=== PATIENT | female | born 1985 | race Two or more races ===

== ENCOUNTER → 2017-09-21 | Outpatient (CLI) | payer MEDICAID | LOC: FIMAGING 08:01 | PROVIDERS: ATTEND Family Medicine | DX: M51.36 Other intervertebral disc degeneration, lumbar region (principal); M54.41 Lumbago with sciatica, right side; G89.29 Other chronic pain ==

== ENCOUNTER 2017-12-01 13:50 | Emergency (ER) | payer MEDICAID ==
--- NOTE | 2017-12-01 14:16 | CPEKG ---
Heart Rate: 72 RR Interval: 833 P-R Interval: 128 QRSD Interval: 94 QT Interval: 392 QTC Interval: 430 P [place]: 25 QRS [place]: 69 T Wave [place]: 68 EKG Severity - NORMAL ECG - EKG Impression: SINUS RHYTHM Electronically Signed By: Griffin Oneill 01-Dec-2017 16:18:44
--- NOTE | 2017-12-01 14:19 | EDPHY ---
HPI/HX/ROS/PE/MDM - Data Points Imaging: Discussed imaging studies w/ supervisor of operations Radiologist Narrative: CHIEF COMPLAINT: Epigastric pain HPI: The patient is a 32-year-old female with no significant past medical history. Several hours ago, the patient was having a bowel movement and she developed severe epigastric pain. She felt diaphoretic and felt like she was going to pass out but she did not lose consciousness. This was followed by shortness of breath. Her pain has now largely resolved although she describes it like an electrical shock radiating from her epigastrium to her back. She denies hematemesis or hematochezia. She denies fever. She denies recent trauma. REVIEW OF SYSTEMS: Aside from elements discussed in the HPI, a comprehensive 10-point review of systems was reviewed and is negative. PMH: The patient states that she has tested positive on genetic testing for markers for both lactose intolerance and alpha 1 antitrypsin deficiency. She has not been officially diagnosed with these diseases. SOCIAL HISTORY: Patient has 1 child. Denies alcohol or drug abuse. PHYSICAL EXAM: General:Patient is alert, in no acute distress. ENT:Eyes are normal to inspection. ENT inspection normal. Neck: Normal inspection. Full range of motion. Respiratory:No respiratory distress. Breath sounds normal bilaterally. Cardiovascular: Regular rate and rhythm. Strong peripheral pulses. Normal cap refill. Abdomen: Moderate tenderness is present in the epigastrium. There are no peritoneal signs. There are normal bowel sounds. Back: Normal to inspection. No tenderness to palpation. Skin: Normal color. No rash. Warm and dry. Extremities: Normal appearance. Full range of motion. Neuro: Oriented x3. Normal motor function. Normal sensory function. (Kevin Mcmillan) ED Course: EKG reveals normal sinus rhythm without acute ST changes. Patient was signed out to Dr. Oneill at 3:00 p.m. pending completion of workup. (Kevin Mcmillan) MDM: 3:30 P.M. discussed the patient's test results which are very reassuring. Her repeat abdominal exam is benign. She admits to having been diagnosed with heartburn in the past. I will start her on Pepcid. She is currently asymptomatic. Agree to let her go home and follow up with her primary in the next few days. We also discussed indications for returning sooner. (Griffin Oneill) - Data Points Imaging Results: Imaging Impressions Abdomen X-Ray 12/01/17 14:10 Impression: 1. No acute findings. 2. Mild to moderate stool in the colon. Abdomen Ultrasound 12/01/17 14:51 Impression: Normal ultrasound abdomen limited. No evidence of cholelithiasis. Laboratory Results: Laboratory Results 12/01/17 14:15 12/01/17 14:15 12/01/17 12/01/17 12/01/17 14:15 14:15 14:15 WBC 8.21 10^3/uL 10^3/uL (3.80-9.50) RBC 5.49 10^6/uL H 10^6/uL (4.18-5.33) Hgb 15.9 g/dL g/dL (12.6-16.3) Hct 47.1 % H % (38.0-47.0) MCV 85.8 fL fL (81.5-99.8) MCH 29.0 pg pg (27.9-34.1) MCHC 33.8 g/dL g/dL (32.4-36.7) RDW 12.2 % % (11.5-15.2) Plt Count 299 10^3/uL 10^3/uL (150-400) MPV 9.7 fL fL (8.7-11.7) Neut % (Auto) 64.9 % % (39.3-74.2) Lymph % (Auto) 25.9 % % (15.0-45.0) [place] % (Auto) 5.4 % % (4.5-13.0) Eos % (Auto) 2.9 % % (0.6-7.6) Baso % (Auto) 0.7 % % (0.3-1.7) Nucleat RBC Rel Count 0.0 % % (0.0-0.2) Absolute Neuts (auto) 5.32 10^3/uL 10^3/uL (1.70-6.50) Absolute Lymphs (auto) 2.13 10^3/uL 10^3/uL (1.00-3.00) Absolute Monos (auto) 0.44 10^3/uL 10^3/uL (0.30-0.80) Absolute Eos (auto) 0.24 10^3/uL 10^3/uL (0.03-0.40) Absolute Basos (auto) 0.06 10^3/uL 10^3/uL (0.02-0.10) Absolute Nucleated RBC 0.00 10^3/uL 10^3/uL (0-0.01) Immature Gran % 0.2 % % (0.0-1.1) Immature Gran # 0.02 10^3/uL 10^3/uL (0.00-0.10) Sodium 140 mEq/L mEq/L (135-145) Potassium 4.3 mEq/L mEq/L (3.5-5.2) Chloride 104 mEq/L mEq/L (97-110) Carbon Dioxide 25 mEq/l mEq/l (22-31) Anion Gap 11 mEq/L mEq/L (8-16) BUN 14 mg/dL mg/dL (7-23) Creatinine 0.7 mg/dL mg/dL (0.6-1.0) Estimated GFR > 60 Glucose 84 mg/dL mg/dL (70-100) Calcium 10.0 mg/dL mg/dL (8.5-10.4) Total Bilirubin 0.8 mg/dL mg/dL (0.1-1.4) Conjugated Bilirubin 0.3 mg/dL mg/dL (0.0-0.5) Unconjugated Bilirubin 0.5 mg/dL mg/dL (0.0-1.1) AST 30 IU/L IU/L (14-46) ALT 45 IU/L IU/L (9-52) Alkaline Phosphatase 69 IU/L IU/L (38-126) Total Protein 8.2 g/dL g/dL (6.3-8.2) Albumin 4.4 g/dL g/dL (3.5-5.0) Lipase 153 IU/L IU/L (23-300) Beta HCG, Qual NEGATIVE Medications Given: Discontinued Medications Hydromorphone HCl (Dilaudid) 0.5 mg IVP EDNOW ONE Stop: 12/01/17 14:39 Last Admin: 12/01/17 14:44 Dose: 0.5 mg Ondansetron HCl (Zofran) 4 mg IVP EDNOW ONE Stop: 12/01/17 14:44 Last Admin: 12/01/17 14:44 Dose: 4 mg General Time Seen by Provider: 12/01/17 14:02 Initial Vital Signs: Initial Vital Signs Temperature (C) 36.7 C 12/01/17 13:56 Heart Rate 86 12/01/17 13:56 Respiratory Rate 16 12/01/17 13:56 Blood Pressure 104/81 H 12/01/17 13:56 O2 Sat (%) 100 12/01/17 13:56 O2 Delivery Mode Room Air Allergies/Adverse Reactions: aspirin Allergy (Verified 12/01/17 13:57) Pt reports anaphylaxis lactose Allergy (Verified 12/01/17 13:57) Pt reports abdominal discomfort, acne NSAIDS (Non-Steroidal Anti-Inflamma Allergy (Verified 12/01/17 13:57) Pt reports anaphylaxis Home Medications: Medication Instructions Recorded Adderall 10 MG (*) 12/01/17 Famotidine [Pepcid] 40 mg PO HS #30 tablet 12/01/17 Departure - Departure Disposition: Home, Routine, Self-Care Clinical Impression: Abdominal pain Qualifiers: Abdominal location: epigastric Qualified Code(s): R10.13 - Epigastric pain Condition: Fair Instructions: Abdominal Pain (ED) Referrals: NONE *PRIMARY CARE P,. [Primary Care Provider] - As per Instructions Prescriptions: Famotidine [Pepcid] 40 mg PO HS #30 tablet
[2017-12-01 14:26] LABS: PLATELET COUNT 299 10^3/uL (150-400)
[2017-12-01] MEDS ORDERED: HYDROmorphONE/DILAUDID 2 MG/ML INJ IVP ONE (14:38)
[2017-12-01] MEDS ORDERED: ONDANSETRON 4 MG/2 ML VIAL ONE (14:42)
[2017-12-01] MEDS ORDERED: ONDANSETRON 4 MG/2 ML VIAL IVP ONE (14:43)
[2017-12-01 15:40] VITALS: BP 109/64
== END 2017-12-01 15:40 | disposition home or self-care (01) ==
LOC: CED 13:50
DX: R10.13 Epigastric pain (principal)
CPT/HCPCS: 74018-PO; 76705-PO; 80048-PO; 80076-PO; 83690-PO; 84703-PO; 85025-PO; 96374; J1170; J2405

== ENCOUNTER 2018-09-25 11:22 | Emergency (ER) | payer MEDICAID ==
--- NOTE | 2018-09-25 12:48 | EDPHY ---
H & P Time Seen by Provider: 09/25/18 11:37 HPI/ROS: This patient complains of left-sided sciatic pain that is 4/10 intensity describes a tightness in her left hip region extending down her leg to her small toe with occasional mild paresthesias. She has had the symptoms for 4 weeks. She also complains of left midfoot pain. That been present for 2 weeks since an 8 mi barefoot walking the beach. Toward the end of that walk she had felt a pop in her left foot with pain since that time to the midfoot that is worse with weight-bearing and improves with rest. Currently the pain is 5/10 intensity. She notes no other exacerbating factors. She is accompanied by her . She also reports that she believes she is . Her last menstrual period was approximately 6 weeks ago and she had a positive home test but she requests a serum test. ROS: Constitutional: No fevers new line pulmonary: No shortness of breath Cardiovascular: No complaints including no significant edema to the lower extremity affected. Integumentary: No skin rash or erythema GI: No abdominal pain. She has mild nausea but no vomiting : No vaginal bleeding Neuro: No focal numbness or weakness that she does have some vague intermittent paresthesias to the lateral aspect of her foot. 7 point review of symptoms is performed and otherwise negative with exception of pertinent positives and negatives listed in HPI and ROS Smoking Status: Never smoked Physical Exam: General Appearance: Alert, no distress. Eyes: Pupils equal and round no pallor or injection. ENT, Mouth: Mucous membranes moist. Respiratory: There are no retractions, lungs are clear to auscultation. Cardiovascular: Regular rate and rhythm. No murmur gallop rub. She maintains 2+ dorsalis pedis and posterior tibialis pulses to bilateral lower extremities. Gastrointestinal: Abdomen is soft and nontender, no masses, bowel sounds normal. Back: No midline tenderness. She does have left paraspinous muscular tenderness extends into the left sciatic notch. Positive straight leg raise at 25 degrees on the left. Negative on the right. Neurological: GCS 15 with no focal deficits. She maintains 5/5 strength in great toe dorsiflexion plantar flexion bilaterally and 2+ symmetric patellar and Achilles DTRs bilaterally. Skin: Warm and dry, no rashes. Musculoskeletal: Neck is supple nontender. Extremities are symmetrical, full range of motion. With exception of the left foot Left foot: Patient has midfoot tenderness to palpation with no significant ecchymosis. No 5th metatarsal tenderness. No ankle swelling or tenderness. Psychiatric: Mood and affect are normal DIFFERENTIAL DIAGNOSIS: After history and physical exam differential diagnosis was considered for sciatica, foot sprain, foot fracture, 1st trimester , Constitutional: Initial Vital Signs Temperature (C) 36.6 C 09/25/18 11:33 Heart Rate 92 09/25/18 11:33 Respiratory Rate 16 09/25/18 11:33 Blood Pressure 114/69 09/25/18 11:33 O2 Sat (%) 99 09/25/18 11:33 O2 Delivery Mode Room Air Allergies/Adverse Reactions: aspirin Allergy (Verified 09/25/18 11:31) Pt reports anaphylaxis lactose Allergy (Verified 09/25/18 11:31) Pt reports abdominal discomfort, acne NSAIDS (Non-Steroidal Anti-Inflamma Allergy (Verified 09/25/18 11:31) Pt reports anaphylaxis Home Medications: Medication Instructions Recorded Adderall 10 MG (*) 12/01/17 Antidepressant 09/25/18 Klonopin (*) 09/25/18 MDM/Departure - MDM Diagnostics: Three-view foot x-ray: Negative for fracture by my interpretation Imaging Results: Imaging Impressions Foot X-Ray 09/25/18 12:07 Impression: 1. No acute osseous abnormality seen left foot. 2. Soft tissue swelling adjacent to the fifth MTP joint. Imaging: I viewed and interpreted images myself ED Course/Re-evaluation: Postop shoe applied. I counseled patient regarding stretches that may be helpful for her sciatica in advise follow up with Podiatry for her foot pain. I suspect that she has foot sprain given negative foot x-ray. I counseled she and regarding this. Her serum test is also positive confirming her home test. She had her are excited about this . While the patient has sciatica she does not have significant radiculopathy or evidence of cauda equina on exam. Plan will be to take Tylenol and frequent stretching follow up with primary care physician and Podiatry - Depart Disposition: Home, Routine, Self-Care Clinical Impression: Sprain of foot, left Qualifiers: Encounter type: initial encounter Qualified Code(s): S93.602A - Unspecified sprain of left foot, initial encounter Sciatica Qualifiers: Laterality: left Qualified Code(s): M54.32 - Sciatica, left side Condition: Good Instructions: Sciatica (ED), Foot Sprain (ED) Additional Instructions: Diagnosis: 1. Left-sided foot sprain 2. Left-sided sciatica Plan: Daily stretches 3-5 minutes each of butterfly, sphynx, pigeon, hamstring or variance of the stretches as discussed Tylenol for discomfort as needed Postop shoe when your up and about and consider cane or crutches so that you only have minimal touch down weight-bearing to the affected foot. 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 Follow up with primary care physician for any ongoing sciatica symptoms despite plan Return emergency department if he developed unbearable pain despite plan Referrals: Db He MD [Primary Care Provider] - As per Instructions Nathan Camarillo DPM [Doctor of Podiatric Medicine] - As per Instructions Pita Beal DO [Doctor of Osteopathy] - As per Instructions
[2018-09-25 13:21] VITALS: BP 106/53
== END 2018-09-25 13:19 | disposition home or self-care (01) ==
LOC: CED 11:22
DX: S93.602A Unspecified sprain of left foot, initial encounter (principal); M54.42 Lumbago with sciatica, left side; Y92.832 Beach as the place of occurrence of the external cause; Y93.01 Activity, walking, marching and hiking
CPT/HCPCS: 73630-PO; 99284-ER; L4386-ER

== ENCOUNTER 2018-10-27 10:40 | Emergency (ER) | payer MEDICAID ==
--- NOTE | 2018-10-27 10:51 | EDPHY ---
H & P Stated Complaint: abdominal pain Time Seen by Provider: 10/27/18 10:51 HPI/ROS: CHIEF COMPLAINT: Left upper quadrant pain HISTORY OF PRESENT ILLNESS: This is a 33-year-old female who is 11 weeks based upon an office ultrasound. She has had problematic symptoms of constipation for decades. She notes this past weekend she took some p.o. Medication, doubt fully took a lax, as well as a suppository, with minimal affect. She took that not because she was having abdominal pain but instead she had not had a bowel in for 3 days. When she is healthy her typical bowel movement is every 2-3 days. 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 She has had this discomfort in the left upper quadrant does not radiate to the back. It has been setting persistent. It is not to the point where it is causing her to have dry heaves. She states he has never had this degree of discomfort in the past with her constipation. The pain itself is localized, does not radiate, is been persistent and is not expanding however. It is getting worse to the point where she cannot keep things down. Furthermore, she has had no dysuria or frequency. None of the pain goes into the chest. She has had no associated cough or shortness of breath phlegm or wheezing. REVIEW OF SYSTEMS: Constitutional: No fever, no chills. Eyes: No discharge ENT: No sore throat. Cardiovascular: No chest pain, no palpitations. Respiratory: No cough, shortness of breath, or wheezing. Gastrointestinal: No Nausea, vomiting, abdominal pain or diarrhea Genitourinary: No hematuria or frequency. Musculoskeletal: No back pain. Skin: No rashes. Neurological: No headache. A 10 system review of systems was performed and is negative except for the noted findings in the HPI. Source: Patient Exam Limitations: No limitations - Personal History LMP (Females 10-55): (11 weeks, US done at office.) EDC: 08/17/18 Tetanus Vaccine Date: within 10 years - Medical/Surgical History Hx Asthma: Yes Hx Chronic Respiratory Disease: No Hx Diabetes: No Hx Cardiac Disease: No Hx Renal Disease: No Hx Cirrhosis: No Hx Alcoholism: No Hx HIV/AIDS: No Hx Splenectomy or Spleen Trauma: No Other PMH: ADHD, asthma, lactose intolerance, alpha 1 antitrypsin deficiency, depression. Surg-none - Social History Smoking Status: Never smoked Alcohol Use: None Drug Use: None - Physical Exam Exam: General Appearance: Alert, moderate distress, hunched over vomiting. Afebrile. Normal phonation. No respiratory distress. Eyes: Pupils equal and round no pallor or injection. No icterus ENT, Mouth: Mucous membranes slightly dry Pharynx without erythema or exudate. TM Clear. Neck: No adenopathy. Supple. No JVD. Trachea in midline. Respiratory: There are no retractions, lungs are clear to auscultation. Cardiovascular: Regular rate and rhythm, without murmur Abdomen: Soft , , bowel sounds present. No masses. There is tenderness present left upper quadrant, though no rebound or guarding. Neurological: Ox3. No motor weakness. Sensation intact. Gait nl. Skin: Warm and dry, no rashes. Musculoskeletal: No joint swelling. Extremities: No edema. Homans sign negative. No cords. Psychiatric: Normal affect. Patient is oriented X 3. There is no agitation Constitutional: Initial Vital Signs Temperature (C) 36.7 C 10/27/18 10:48 Heart Rate 81 10/27/18 10:48 Respiratory Rate 18 10/27/18 10:48 Blood Pressure 115/77 10/27/18 10:48 O2 Sat (%) 97 10/27/18 10:48 O2 Delivery Mode Room Air Allergies/Adverse Reactions: aspirin Allergy (Verified 10/27/18 10:51) Pt reports anaphylaxis lactose Allergy (Verified 10/27/18 10:51) Pt reports abdominal discomfort, acne NSAIDS (Non-Steroidal Anti-Inflamma Allergy (Verified 10/27/18 10:51) Pt reports anaphylaxis Home Medications: Medication Instructions Recorded Adderall 10 MG (*) 12/01/17 Xanax 10/27/18 Medical Decision Making - Diagnostics Imaging Results: Imaging Impressions Abdomen Ultrasound 10/27/18 11:09 Impression: Normal right upper quadrant ultrasound. Findings discussed with Dimas Joel MD 10/27/2018 at 11:37. ED Course/Re-evaluation: Initial plan was for IV Benadryl and Phenergan however, she was whisked off to ultrasound prior to that. She had just been retching prior to that. Laboratory studies included: Normal chemistries Normal LFTs Negative lipase Normal white count. She is unable to provide us a urine specimen yet Ultrasound as reported to me by the radiologist was negative for gallstones. No fluid noted. This is an upper quadrant ultrasound. Ultimately, she did receive the combination of IV Benadryl and Phenergan. She is markedly improved though likewise sedated. Her urine was neg for UTI/ Pyelonephritis. Her pain was essentially gone and thus only mild tenderness at that point. I am suspecting this is related to constipation and not a problem with the as she is so much bettter. That said, with a therapeutic challeng, she should be much better. Thus, Rx with Miralalx, suspect some pain will be back with wearing a of the IV medications as I would expect the MiraLax to take 3-6 hours to kick in. Differential Diagnosis: Differential diagnosis includes, but is not limited to: Gastroenteritis, dehydration, diverticulitis, pancreatitis, renal colic, kidney stones, ureterolithiasis, cholecystitis, appendicitis, gastritis, mesenteric adenitis, food poisoning, bacterial dysentery, missed AB, spontaneous - Data Points Laboratory Results: 10/27/18 10/27/18 11:55 11:19 POC Sodium 137 mEq/L mEq/L (135-145) POC Potassium 4.0 mEq/L mEq/L (3.3-5.0) POC Chloride 108.0 mEq/L mEq/L (97-110) POC Total CO2 22 mEq/L mEq/L (22-31) POC BUN 7 mg/dL mg/dL (7-23) POC Creatinine 0.7 mg/dL mg/dL (0.6-1.0) POC Glucose 81 mg/dL mg/dL (70-100) POC Calcium 9.6 mg/dL mg/dL (8.5-10.4) Lipase 180 IU/L IU/L (23-300) Medications Given: Discontinued Medications Diphenhydramine HCl (Benadryl Injection) 12.5 mg IVP EDNOW ONE Stop: 10/27/18 11:15 Last Admin: 10/27/18 11:38 Dose: 12.5 mg Sodium Chloride (Ns) 1,000 mls @ 0 mls/hr IV EDNOW ONE; As Directed PRN Reason: Protocol Stop: 10/27/18 11:54 Last Admin: 10/27/18 12:03 Dose: 1,000 mls Promethazine HCl (Phenergan) 12.5 mg IVP ONCE ONE Stop: 10/27/18 11:09 Last Admin: 10/27/18 11:35 Dose: 12.5 mg Point of Care Test Results: CBC CBC Collection Date 10/27/18 CBC Collection Time 11:00 WBC 7.85 RBC 5.02 HGB 14.7 HCT 42.3 PLT 282 Neut # 5.72 Neut 72.8 LYMPH # 1.65 LYMPH 21 MCV 84.3 Chemistry 10/27/18 11:19 POC Sodium 137 mEq/L mEq/L (135-145) POC Potassium 4.0 mEq/L mEq/L (3.3-5.0) POC Chloride 108.0 mEq/L mEq/L (97-110) POC Total CO2 22 mEq/L mEq/L (22-31) POC BUN 7 mg/dL mg/dL (7-23) POC Creatinine 0.7 mg/dL mg/dL (0.6-1.0) POC Glucose 81 mg/dL mg/dL (70-100) POC Calcium 9.6 mg/dL mg/dL (8.5-10.4) Urine Dip Collection Date 10/27/18 Collection Time 12:55 Specific [place] (1.002-1.030) 1.030 PH (5.0-7.5) 6.0 Leukocytes (Negative) Negative Nitrites (Negative) Negative Protein (Negative) Negative Glucose (Negative) Negative Ketones (Negative) Negative Urobilnogen (0.2-1.0 EU) 0.2 Bilirubin (Negative) Negative Blood (Negative) Negative Departure - Departure Disposition: Home, Routine, Self-Care Clinical Impression: Abdominal pain Qualifiers: Abdominal location: left upper quadrant Qualified Code(s): R10.12 - Left upper quadrant pain Qualifiers: Weeks of gestation: 11 weeks Qualified Code(s): Z3A.11 - 11 weeks gestation of Condition: Good Instructions: Acute Abdominal Pain (ED) Additional Instructions: If her pain starts coming back again as bad as it was before it is imperative that he come back immediately Return tomorrow if the pain is not all better. Once home, you should push fluids and use the following medications: MiraLax 3 measuring cups - repeat in 6 hours if no results. Referrals: Db He MD [Primary Care Provider] - As per Instructions
[2018-10-27] MEDS ORDERED: PROMETHAZINE HCL 25 MG/ML INJ IVP ONE (11:08)
[2018-10-27] MEDS ORDERED: NS 1,000 ML IV ONE (11:53)
[2018-10-27 13:03] VITALS: BP 110/70
== END 2018-10-27 14:53 | disposition home or self-care (01) ==
LOC: CED 10:40
DX: O99.611 Diseases of the digestive system complicating pregnancy, first trimester (principal); R10.12 Left upper quadrant pain; E86.9 Volume depletion, unspecified; Z3A.11 11 weeks gestation of pregnancy
CPT/HCPCS: 76705-PO; 80048-ER; 85025-QW-ER; 96361-ER; 96374-ER; 96375-ER; 99285-ER; J1200; J2550

== ENCOUNTER → 2019-01-03 | Outpatient (CLI) | payer MEDICAID | LOC: FIMAGING 07:02 ==